=== PATIENT | male | born 1990 | race Caucasian/White ===

== ENCOUNTER 2020-09-13 19:54 | Emergency (ER) | payer OTHER ==
[2020-09-13 20:06] VITALS: BP 160/74
[2020-09-13] MEDS ORDERED: AMOX/CLAV 875 MG/125 MG TABLET PO STA (20:18)
[2020-09-13] MEDS ORDERED: BACITRACIN ZINC OINT 1 PACKET TOP STA (20:18)
--- NOTE | 2020-09-13 20:22 | ED Physician Documentation ---
History of Present Illness - Stated complaint Stated Complaint: DOG BITE - Chief complaint Chief Complaint: Laceration - History obtained from History obtained from: Patient - Additonal information Additional information: Fully immunized gentleman accidentally bitten by fully immunized dog to the left upper lip at a friend's house just prior to arrival. Review of Systems Constitutional: denies: Fever, Chills Nose: reports: Reviewed and negative Cardiac: reports: Reviewed and negative Respiratory: reports: Reviewed and negative PD PAST MEDICAL HISTORY - Present Medications Home Medications: Ambulatory Orders Medication Instructions Recorded Confirmed Amox/Clav 875/125 [Augmentin] 1 each PO Q12H #10 tablet 09/13/20 Bacitracin Zinc Oint 1 applic TOP BID #1 gm 09/13/20 - Allergies Allergies/Adverse Reactions: Allergies Allergy/AdvReac Type Severity Reaction Status Date / Time No Known Drug Allergies Allergy Verified 09/13/20 20:01 PD ED PE NORMAL - Vitals Vital signs reviewed: Yes - General General: Alert and oriented X 3, No acute distress - HEENT HEENT: Other (There is about a 5 mm subcutaneous arthur that does not require primary closure on the left upper lip.) - Neuro Neuro: Alert and oriented X 3, Normal speech Results - Vitals Vitals: Vital Signs - 24 hr 09/13/20 20:01 Temperature 36.5 C Heart Rate 81 Respiratory 16 Rate Blood Pressure 160/74 H O2 Saturation 99 Oxygen O2 Source Room air Departure - Departure Disposition: 01 Home, Self Care Clinical Impression: Dog bite Qualifiers: Encounter type: initial encounter Qualified Code(s): W54.0XXA - Bitten by dog, initial encounter Condition: Good Record reviewed to determine appropriate education?: Yes Instructions: ED Bite Dog Prescriptions: Amox/Clav 875/125 [Augmentin] 1 each PO Q12H #10 tablet Bacitracin Zinc Oint 1 applic TOP BID #1 gm Comments: Return if you develop signs of infection including but not limited to redness, swelling, drainage, increased pain, fever. Otherwise soap and water and the antibiotic ointment and a few days worth of prophylactic antibiotic should be sufficient.
== END 2020-09-13 20:25 | disposition home or self-care (01) ==
LOC: ED 19:54
DX: S00.571A Other superficial bite of lip, initial encounter (principal); W54.0XXA Bitten by dog, initial encounter; Y92.009 Unspecified place in unspecified non-institutional (private) residence as the place of occurrence of the external cause
CPT/HCPCS: 99282; 99283; A9270

== ENCOUNTER 2021-04-21 10:21 | Emergency (ER) | payer OTHER ==
[2021-04-21 10:33] VITALS: BP 145/63
--- NOTE | 2021-04-21 10:45 | ED Physician Documentation ---
History of Present Illness - Stated complaint Stated Complaint: CONGESTION - Chief complaint Chief Complaint: General - History obtained from History obtained from: Patient - Additonal information Additional information: He was exposed to somebody that was positive for Covid. He has no congestion or other symptoms suggestive of Covid but the sent him here for a test. Review of Systems Constitutional: denies: Fever, Chills, Myalgias, Fatigue Nose: denies: Rhinorrhea / runny nose Throat: denies: Sore throat Respiratory: denies: Dyspnea, Cough PD PAST MEDICAL HISTORY - Present Medications Home Medications: Ambulatory Orders Medication Instructions Recorded Confirmed No Known Home Medications 04/21/21 04/21/21 - Allergies Allergies/Adverse Reactions: Allergies Allergy/AdvReac Type Severity Reaction Status Date / Time No Known Drug Allergies Allergy Verified 04/21/21 10:33 PD ED PE NORMAL - Vitals Vital signs reviewed: Yes - General General: Alert and oriented X 3, No acute distress - Neuro Neuro: Alert and oriented X 3, Normal speech - Psych Psych: Normal mood, Normal affect Results - Vitals Vitals: Vital Signs - 24 hr 04/21/21 10:31 Temperature 36.6 C Heart Rate 73 Respiratory 16 Rate Blood Pressure 145/63 H O2 Saturation 97 Oxygen O2 Source Room air Departure - Departure Disposition: 01 Home, Self Care Clinical Impression: Exposure to COVID-19 virus Condition: Good Record reviewed to determine appropriate education?: Yes Comments: You have a Covid test pending. You need to self quarantine until the result is done and negative. Do not leave your house. Do not get near anybody. The results should be done in 48 to 72 hours. We will call with a positive result, the fastest way to get a negative result for confirmation though is to go to the hospital website at [email or web address], click on the my [facility] tab and sign up for the patient portal. If any friends or family get sick and would like to have a Covid test done, but do not have signs or symptoms that would necessitate being hospitalized, there are multiple local options for Covid testing. [facility] keeps an updated list of testing and vaccination options at: [email or web address]. Forms: Activity restrictions Discharge Date/Time: 04/21/21 10:52
== END 2021-04-21 10:52 | disposition home or self-care (01) ==
LOC: ED 10:21
DX: J02.9 Acute pharyngitis, unspecified (principal); Z20.822 Contact with and (suspected) exposure to COVID-19
CPT/HCPCS: 99281; 99283

== ENCOUNTER 2021-04-26 05:48 | Emergency (ER) | payer OTHER ==
--- NOTE | 2021-04-26 05:57 | ED Physician Documentation ---
PD HPI URI - Stated complaint Stated Complaint: SORE THROAT - Chief complaint Chief Complaint: Heent - History obtained from History obtained from: Patient - History of Present Illness Timing - onset: How many hours ago (several), Today Timing duration: Hours (felt okay yesterday with perhaps mild malaise. Has sore throat this moring. Roommate sick with URI symptoms and was tested yesterday for COVID, results pending. His roommate had had contact with COVID positive person.) Timing details: Abrupt onset, Still present Associated symptoms: Sore throat, Swollen nodes. No: Fever, Nasal congestion, Dry cough Contributing factors: Sick contact Similar symptoms before: Has not had sx before Recently seen: Not recently seen Review of Systems Constitutional: reports: Myalgias. denies: Fever Nose: denies: Rhinorrhea / runny nose, Congestion Throat: reports: Sore throat Respiratory: denies: Cough GI: denies: Nausea, Vomiting, Diarrhea Skin: denies: Rash PD PAST MEDICAL HISTORY - Past Medical History Past Medical History: No Cardiovascular: None Respiratory: None Endocrine/Autoimmune: None - Present Medications Home Medications: Ambulatory Orders Medication Instructions Recorded Confirmed No Known Home Medications 04/21/21 04/26/21 - Allergies Allergies/Adverse Reactions: Allergies Allergy/AdvReac Type Severity Reaction Status Date / Time No Known Drug Allergies Allergy Verified 04/26/21 05:59 PD ED PE NORMAL - Vitals Vital signs reviewed: Yes - General General: Alert and oriented X 3, No acute distress, Well developed/nourished - HEENT HEENT: Pharynx benign (minimsl redness left side without exudate, swelling.) - Neck Neck: Supple, no meningeal sign, Other (mild right anterior adenopathy that is tender. ) - Cardiac Cardiac: RRR, No murmur - Respiratory Respiratory: Clear bilaterally - Derm Derm: Normal color, Warm and dry, No rash Results - Vitals Vitals: Vital Signs - 24 hr 04/26/21 05:55 Temperature 36.9 C Heart Rate 77 Respiratory 14 Rate Blood Pressure 133/74 H O2 Saturation 99 Oxygen O2 Source Room air PD MEDICAL DECISION MAKING - ED course Complexity details: considered differential (epxosure to roommate with URI symptoms and exposure to COVID, so patient reasonable risk for it. Does not clinically appear strep, with nursing triage having obtained rapid strep. Will get COVID reference. ), d/w patient Departure - Departure Clinical Impression: Sore throat (viral), Exposure to COVID-19 virus Condition: Stable Record reviewed to determine appropriate education?: Yes Instructions: ED Pharyngitis Viral Follow-Up: LUIS ENRIQUE Toney [Provider Group] Comments: The Covid test should result in the next 1 to 2 days, as will the strep culture test. Off work with rest and stay well-hydrated today and tomorrow pending the results. Tylenol ibuprofen as needed for pains. We will call you with positive results. You can also reference the results through the patient portal. My Covid test you have a Covid test pending. You need to self quarantine until the result is done and negative. Do not leave your house. Do not get near anybody. The results should be done in 48 to 72 hours, but sometimes longer. We will call with a positive result, the fastest way to get a negative result for confirmation though is to go to the hospital website at [email or web address], click on the my [facility] tab and sign up for the patient portal. If any friends or family get sick and would like to have a Covid test done, but do not have signs or symptoms that would necessitate being hospitalized, we encourage testing throughone of the local pharmacies or the Health Department. Call them to schedule an appointment. Forms: Activity restrictions
[2021-04-26 05:59] VITALS: BP 133/74
[2021-04-26] MEDS ORDERED: IBUPROFEN 600 MG TABLET PO STA (06:03)
[2021-04-26 06:18] LABS: RAPID STREP SCREEN Negative (Negative)
== END 2021-04-26 06:20 | disposition home or self-care (01) ==
LOC: ED 05:48
DX: J02.8 Acute pharyngitis due to other specified organisms (principal); B97.89 Other viral agents as the cause of diseases classified elsewhere; Z20.822 Contact with and (suspected) exposure to COVID-19
CPT/HCPCS: 87070; 87430; 87635; 99282; 99283; A9270

== ENCOUNTER 2023-09-16 08:16 | Emergency (ER) | payer OTHER ==
[2023-09-16 08:28] VITALS: BP 146/89; O2SAT 98
--- NOTE | 2023-09-16 08:28 | ED Physician Documentation ---
PD HPI HEENT - Stated complaint Stated Complaint: LT EAR PAIN/PRESSURE - Chief complaint Chief Complaint: Heent - History obtained from History obtained from: Patient - Additional information Additional information: He get back on a plane trip on the eighth and had a cold at the time. Since then he has persistent sloshing with mild pain in the left ear. No fevers. PD PAST MEDICAL HISTORY - Past Medical History Past Medical History: No Cardiovascular: None Respiratory: None Endocrine/Autoimmune: None - Past Surgical History Past Surgical History: No - Present Medications Home Medications: Ambulatory Orders Medication Instructions Recorded Confirmed Amoxicillin 2 tab PO TID #30 cap 09/16/23 - Allergies Allergies/Adverse Reactions: Allergies Allergy/AdvReac Type Severity Reaction Status Date / Time No Known Drug Allergies Allergy Verified 09/16/23 08:22 - Social History Does the pt smoke?: No Smoking Status: Never smoker Does the pt drink ETOH?: No Does the pt have substance abuse?: No - Immunizations Immunizations are current?: Yes - POLST Patient has POLST: No PD ED PE NORMAL - Vitals Vital signs reviewed: Yes - General General: Alert and oriented X 3 - HEENT HEENT: Other (Right TM normal. 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 [place] In addition to the antibiotics I would like you to take Mucinex D per package instructions and drink plenty of fluids. Follow-up with your flight surgeon in about a week for recheck. Return for new or worsening symptoms. Forms: PCP List
== END 2023-09-16 08:29 | disposition home or self-care (01) ==
LOC: ED 08:16
DX: H66.92 Otitis media, unspecified, left ear (principal)
CPT/HCPCS: 99282; 99283